=== PATIENT | male | born 1950 | race Caucasian/White ===

== ENCOUNTER → 2017-06-12 | Outpatient (CLI) | payer OTHER ==
[~2017-06-12] MED LIST: ALEVE220 MG PO; ASPIRIN325 PO; BENICAR20 MG PO; CATAPRES0.2 MG PO; CELEBREX 200 M200 M1 PO; CIALIS20 MG PO; COLACE100 MG PO; COUMADIN 5 MG TA5 M1 PO; FLONASE 0.05%50 MCG NASAL; FLOVENT HFA 1110 MCG INH; HYDROCHLOROTHIA25 M2 PO; IRON325 PO; KLOR-CON 1010 MEQ PO; LEVOTHYROXIN0.075 MG PO; LEXAPRO20 MG PO; METFORMIN HCL500 MG PO; MICARDIS 80 MG80 MG PO; MIRAPEX0.125 MG PO; NORVASC5 MG PO; OMEPRAZOLE40 MG PO; PAXIL10 MG; PERCOCET PO; PRED MILD5 ML OP; TIMOLOL MALEATE5 M1; TRAMADOL 50 MG50 MG PO
--- NOTE | ~2017-06-12 | EKG ---
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 : 1950 Requested By: Nino Perry Order Number: [id number] MD: Chacorta Diamond Measurements Intervals [place] Rate: 51 P: 32 VT: 291 QRS: 26 QRSD: 116 T: 28 QT: 451 QTc: 416 Interpretive Statements Sinus bradycardia Prolonged VT interval Compared to ECG 08/31/2014 13:50:15 N[address] change in the ST and T-wave segments Electronically Signed On 06-14-2017 7:37:27 [employer] APPRENTICE by Chacorta Diamond [email or web address] <ELECTRONICALLY SIGNED> By: Chacorta Diamond MD, [facility] 06/14/17 0737 [id number] Chacorta Diamond MD, FACC /EPI
== END | disposition home or self-care (01) ==
LOC: LITH 05:48
DX: N20.0 Calculus of kidney (principal); Z98.890 Other specified postprocedural states